=== PATIENT | female | born 1945 | race Caucasian/White ===

== ENCOUNTER → 2016-07-08 | Outpatient (CLI) | payer OTHER ==
[~2016-07-08] MED LIST: ASPCH81X PO; BIOT1CAP8 PO; CALC-393 PO; ESCI1TAB10 PO; METF1000 PO; METO-217 PO; MULT-671 PO; OMEP40CA PO; RSTOPS OP; SIMV20TA5 PO; TAMO20TA5 PO; TELM5TAB2 PO; TRAV0.00 OP; ZINC1CAP PO; potassium PO
--- NOTE | 2016-07-08 16:42 | MAMMOGRAPHY REPORT ---
UNILATERAL LEFT DIGITAL SCREENING MAMMOGRAM TOMOSYNTHESIS WITH CAD: 07/08/2016 CLINICAL HISTORY: Asymptomatic. Personal history of breast cancer. TECHNIQUE: Left breast tomosynthesis in addition to standard 2D mammography was performed. Current vinicius lamas was also evaluated with a Computer Aided Detection (CAD) system. COMPARISON: Comparison is made to exams dated: 07/05/2015 mammogram, 03/31/2014 mammogram, 05/17/2013 mammogram, and 04/27/2012 mammogram - [facility]. BREAST COMPOSITION: The tissue of the left breast is heterogeneously dense, which may obscure small masses. FINDINGS: The hub of a Mediport catheter is partially visualized in the far superior left breast on the MLO view. There is stable asymmetry in the inferior left breast. Scattered benign rim calcific ations and vascular calcifications in the left breast. No suspicious mass, architectural distortion or cluster of suspicious microcalcifications is seen. IMPRESSION: ACR BI-RADS CATEGORY 1: NEGATIVE There is no mammographic evidence of malignancy. A 1 year screening mammogram is recommended. The p atient will receive written notification of the results. Approximately 10% of breast cancers are not detected with mammography. A negative mammographic repor t should not delay biopsy if a clinically suggestive mass is present. Ya Joseph M.D. ay/:07/08/2016 15:28:11 Cryptoanalysis Teacher: Kary Mckenna, [facility] letter sent: Normal 1/2 BI-RADS Code: ACR BI-RADS Category 1: Negative
== END | disposition home or self-care (01) ==
LOC: C.MAMM 10:30
PROVIDERS: ATTEND Family Medicine
DX: Z12.31 Encounter for screening mammogram for malignant neoplasm of breast (principal); Z86.000 Personal history of in-situ neoplasm of breast

== ENCOUNTER → 2016-09-02 | Outpatient (CLI) | payer OTHER ==
--- NOTE | 2016-09-02 16:56 | DIAGNOSTIC IMAGING REPORT ---
LEFT HAND MIN 3 VIEWS CLINICAL HISTORY: MASS ON POSTERIOR LEFT HAND COMPARISON: None. DISCUSSION: Considerable degenerative change of the first carpometacarpal joint. Moderate degenerative change throughout all remaining osseous structures. No well-defined osseous mass. No significant bony exostosis. Mild generalized soft tissue edema presumably on a degenerative basis. IMPRESSION: Considerable degenerative changes throughout. Moderate generalized soft tissue edema. Electronically signed by: Isai Brooks M.D. 09/02/2016 4:54 PM Dictated Date/Time: 09/02/2016 4:53 PM
== END | disposition home or self-care (01) ==
LOC: C.RDSM 15:30
PROVIDERS: ATTEND Family Medicine
DX: R22.32 Localized swelling, mass and lump, left upper limb (principal); M19.042 Primary osteoarthritis, left hand; M79.9 Soft tissue disorder, unspecified

== ENCOUNTER → 2017-03-11 | Outpatient (CLI) | payer OTHER | END | disposition home or self-care (01) | LOC: C.RDSM 13:22 | PROVIDERS: ATTEND Physical Medicine & Rehabilitation Sports Medicine | DX: M70.72 Other bursitis of hip, left hip (principal); Z96.642 Presence of left artificial hip joint ==

== ENCOUNTER → 2017-07-09 | Outpatient (CLI) | payer OTHER ==
--- NOTE | 2017-07-09 15:23 | MAMMOGRAPHY REPORT ---
UNILATERAL LEFT DIGITAL SCREENING MAMMOGRAM TOMOSYNTHESIS WITH CAD: 07/09/2017 CLINICAL HISTORY: Asymptomatic. Personal history of breast cancer. TECHNIQUE: Breast tomosynthesis in addition to standard 2D mammography was performed. Current study was also evaluated with a Computer Aided Detection (CAD) system. COMPARISON: Comparison is made to exams dated: 07/08/2016 mammogram, 07/05/2015 mammogram, 03/31/2014 mammogram, 05/17/2013 mammogram, 04/27/2012 mammogram, and 04/30/2011 mammogram - [facility]. BREAST COMPOSITION: The tissue of the left breast is heterogeneously dense, which may obscure small masses. FINDINGS: There are no suspicious masses, calcifications, or areas of architectural distortion noted within the left breast. There has been no significant interval change compared to prior exams. Sca ttered benign-appearing calcifications are not significantly changed. Asymmetries in the left superi or and inferior breast are stable compared to multiple prior exams including the 2012 exam. IMPRESSION: ACR BI-RADS CATEGORY 2: BENIGN There is no mammographic evidence of malignancy in the left breast. A 1 year screening mammogram is r ecommended. The patient will receive written notification of the results. Approximately 10% of breast cancers are not detected with mammography. A negative mammographic report should not delay biopsy if a clinically suggestive mass is present. Adrianne So M.D. /:07/09/2017 10:41:43 Learning Operations Specialist: Ambreen MARES(Cynthia)(M), [facility] letter sent: Normal 1/2 BI-RADS Code: ACR BI-RADS Category 2: Benign
== END | disposition home or self-care (01) ==
LOC: C.MAMM 10:16
PROVIDERS: ATTEND Family Medicine
DX: Z12.31 Encounter for screening mammogram for malignant neoplasm of breast (principal); Z85.3 Personal history of malignant neoplasm of breast; Z08 Encounter for follow-up examination after completed treatment for malignant neoplasm

== ENCOUNTER 2017-09-08 23:45 | Observation (INO) | payer OTHER ==
[~2017-09-08] VITALS: Ht 167.6 cm; Wt 80.9 kg
[2017-09-08] MEDS ORDERED: ASPIRIN 324 MG CHEW PO STA (23:55)
[2017-09-09] MEDS: NITROGLYCERIN 0.4 MG SL PER TAB CHARGE SL PRN ×2 (00:14→00:37)
[2017-09-09 00:18] LABS: BASO % 0.2 %; BASO ABS # 0.02 K/uL (0-0.2); EOS % 2.6 %; EOS ABS # 0.21 K/uL (0-0.5); HEMATOCRIT 36.9 % (37-47); HEMOGLOBIN 12.4 g/dL (12.0-16.0); IG# 0.01 K/uL (0.00-0.02); LYMPH % 41.4 %; LYMPH ABS # 3.38 K/uL (1.2-3.4); MEAN CELL VOLUME 89.1 fL (80-100); MEAN CORPUSCULAR HGB CONC 33.6 g/dl (32-36); MEAN PLATELET VOLUME 9.6 fL (7.4-10.4); MONO % 8.2 %; MONO ABS # 0.67 K/uL (0.11-0.59); NEUT % 47.5 %; NEUT ABS # 3.87 K/uL (1.4-6.5); PLATELET COUNT 244 K/uL (130-400); RED CELL DISTRIBUTION WIDTH CV 13.5 % (11.5-14.5); RED CELL DISTRIBUTION WIDTH SD 44.1 fL (36.4-46.3); WHITE BLOOD COUNT 8.16 K/uL (4.8-10.8)
--- NOTE | 2017-09-09 00:22 | EMERGENCY ROOM VISIT NOTE ---
History Report prepared by Germania: Yanet Tim Under the Supervision of: Dr. Riky Vallejo M.D. First contact with patient: 23:49 Chief Complaint: CHEST PAIN Stated Complaint: CHEST PAIN History of Present Illness The patient is a 72 year old female who presents to the Emergency Room with complaints of sudden chest pain starting 5 hours ago. The patient states that it started while she was shopping the grocery store and she felt like she was going to pass out. She states that she did not sit down and kept pushing the cart. The patient reports that her heart rate was 100 and her blood pressure was 130/103 when she came home from the store. She describes the pain as a pressure. She complains of the pain radiating into her neck and her back. She notes that she has felt these symptoms in the past. She notes that she takes a baby aspirin each morning. The patient denies a history of a heart attack, taking medications for her chest pain, walking making the pain worse, eating something spicy, feeling like heart burn, swelling in legs, calf pain, and shortness of breath. The patient notes a history of hypertension, diabetes, and hyperlipidemia. Source of History: patient Onset: 5 hours ago Position: chest Quality: pressure Timing: other (sudden) Associated Symptoms: + neck pain, + back pain, No SOB Note: The patient denies swelling in her legs and calf pain. Review of Systems See HPI for pertinent positives & negatives. A total of 10 systems reviewed and were otherwise negative. Past Medical & Surgical Medical Problems: (1) Breast cancer (2) DM (diabetes mellitus) (3) GERD (gastroesophageal reflux disease) (4) HTN (hypertension) (5) Hyperlipidemia (6) Irregular heart beat Family History FH: CHF (congestive heart failure) Social History Smoking Status: Never Smoker Drug Use: none Marital Status: Housing Status: lives with family Current/Historical Medications Scheduled Aspirin (Aspirin Chewable), 81 MG PO DAILY Biotin (Biotin), 1 CAP PO BID Calcium Carbonate (Calcium), 600 MG PO BID Cyclosporine (Ophth) (Restasis), 1 DROP OP BID Escitalopram (Lexapro), 10 MG PO QAM Escitalopram Oxalate (Lexapro), 20 MG PO QPM Metformin Hcl (Glucophage), 1,000 MG PO BID Metoprolol Succinate (Toprol Xl), 50 MG PO HS Multiple Vitamins W/ Minerals (Multi Complete/Iron), 1 TAB PO DAILY Omeprazole (Prilosec), 40 MG PO DAILY Potassium (Potassium), 3 TABS PO DAILY Simvastatin (Zocor), 20 MG PO QPM Tamoxifen Citrate (Nolvadex), 20 MG PO QAM Telmisartan (Micardis), 20 MG PO DAILY Travoprost (Travatan Z), 1 DROPS OP HS Zinc Sulfate (Zinc Sulfate), 220 MG PO DAILY Allergies Coded Allergies: Acetaminophen (Verified Allergy, Unknown, `, 09/09/17) Adhesives (Verified Allergy, Unknown, ALLERGY TO ADHESIVE TAPE, 09/09/17) Iodinated Diagnostic Agents (Verified Allergy, Unknown, IVP DYE, 09/09/17) Latex1 -Allergic Contact Dermititis (Verified Allergy, Unknown, 09/09/17) Oxycodone (Verified Allergy, Unknown, `, 09/09/17) Sulfa Antibiotics (Verified Allergy, Unknown, "Sulfa drugs", 09/09/17) Atorvastatin (Verified Adverse Reaction, Mild, GI UPSET, 09/09/17) Physical Exam Vital Signs Date Time Temp Pulse Resp B/P (MAP) Pulse Ox O2 Delivery O2 Flow Rate FiO2 09/09/17 01:54 75 18 167/93 99 Room Air 09/09/17 01:24 75 18 181/103 97 Room Air 09/09/17 01:00 77 18 154/92 97 Room Air 09/09/17 00:45 81 18 150/88 99 Room Air 09/09/17 00:38 86 18 154/90 98 Room Air 09/09/17 00:30 86 146/100 98 Room Air 09/09/17 00:23 94 18 159/93 97 Room Air 09/09/17 00:15 99 18 186/86 97 Room Air 09/09/17 00:13 95 20 186/101 97 Room Air 09/09/17 00:00 98 Room Air 09/08/17 23:58 86 09/08/17 23:52 99 Room Air 09/08/17 23:52 36.7 89 22 206/123 100 Room Air Physical Exam GENERAL: Patient is mildly anxious appearing and in minimal distress. EYES: No scleral icterus, unremarkable pupils. ENT: Mucous membranes moist, no nasal congestion. NECK: No masses appreciated, no meningismus, trachea is midline. RESPIRATORY: No dyspnea. Clear to auscultation and equal bilaterally. No wheeze , no rhonchi. CARDIOVASCULAR: Regular rate and rhythm. No murmurs, rubs, gallops appreciated. GASTROINTESTINAL: Abdomen soft, nontender, no peritonitis. Bowel sounds positive. No masses appreciated. BACK: No midline tenderness, no CVA tenderness EXTREMITIES: Normal motion all extremities, no cyanosis, no edema. NEUROLOGIC: Alert and oriented, no acute motor or sensory deficits, no focal weakness, cranial nerves grossly intact. SKIN: No rash, no jaundice, no diaphoresis. Medical Decision & Procedures ER Provider Diagnostic Interpretation: X ray results are stated below per my interpretation: Chest: 1 view: No infiltrate, no effusion, normal cardiac border. Laboratory Results 09/08/17 23:55 Red Blood Count 4.14, Mean Corpuscular Volume 89.1, Mean Corpuscular Hemoglobin 30.0, Mean Corpuscular Hemoglobin Concent 33.6, Mean Platelet Volume 9.6, Neutrophils (%) (Auto) 47.5, Lymphocytes (%) (Auto) 41.4, Monocytes (%) (Auto) 8.2, Eosinophils (%) (Auto) 2.6, Basophils (%) (Auto) 0.2, Neutrophils # (Auto) 3.87, Lymphocytes # (Auto) 3.38, Monocytes # (Auto) 0.67, Eosinophils # (Auto) 0.21, Basophils # (Auto) 0.02 09/08/17 23:55 Test 09/08/17 23:55 White Blood Count 8.16 K/uL (4.8-10.8) Red Blood Count 4.14 M/uL (4.2-5.4) Hemoglobin 12.4 g/dL (12.0-16.0) Hematocrit 36.9 % (37-47) Mean Corpuscular Volume 89.1 fL (80-100) Mean Corpuscular Hemoglobin 30.0 pg (25-34) Mean Corpuscular Hemoglobin Concent 33.6 g/dl (32-36) Platelet Count 244 K/uL (130-400) Mean Platelet Volume 9.6 fL (7.4-10.4) Neutrophils (%) (Auto) 47.5 % Lymphocytes (%) (Auto) 41.4 % Monocytes (%) (Auto) 8.2 % Eosinophils (%) (Auto) 2.6 % Basophils (%) (Auto) 0.2 % Neutrophils # (Auto) 3.87 K/uL (1.4-6.5) Lymphocytes # (Auto) 3.38 K/uL (1.2-3.4) Monocytes # (Auto) 0.67 K/uL (0.11-0.59) Eosinophils # (Auto) 0.21 K/uL (0-0.5) Basophils # (Auto) 0.02 K/uL (0-0.2) RDW Standard Deviation 44.1 fL (36.4-46.3) RDW Coefficient of Variation 13.5 % (11.5-14.5) Immature Granulocyte % (Auto) 0.1 % Immature Granulocyte # (Auto) 0.01 K/uL (0.00-0.02) Anion Gap 8.0 mmol/L (3-11) Est Creatinine Clear Calc Drug Dose 62.8 ml/min Estimated GFR () 77.1 Estimated GFR (Non- 66.6 BUN/Creatinine Ratio 18.9 (10-20) Calcium Level 8.9 mg/dl (8.5-10.1) Troponin I 0.017 ng/ml (0-0.045) Laboratory results as reviewed by me. Medications Administered Medications (Trade) Dose Ordered Sig/Ney Route Start Time Stop Time Status Last Admin Dose Admin Nitroglycerin (Nitrostat Tab) 0.4 mg Q5M PRN SL 09/09/17 00:00 09/09/17 03:12 DC 09/09/17 00:37 0.4 MG Aspirin (Aspirin Chew) 324 mg NOW STAT PO 09/08/17 23:55 09/08/17 23:57 DC 09/09/17 00:12 324 MG ECG Per My Interpretation Indication: chest pain Rate (beats per minute): 96 Rhythm: normal sinus Findings: no acute ischemic change, no ectopy, other (QT-c 429) ED Course 2350: The patient was evaluated in room A10. A complete history and physical exam was performed. 2355: Ordered Aspiring 324 mg PO. 0000: Ordered Nitroglycerin 0.4 mg PRN SL Chest pain. 2: I reevaluated the patient and she has complete resolution of her chest pain after her second Nitroglycerin. She agrees to come into the hospital. Her blood pressure is in the 150s. 0103: Discussed the patient's case with Dr. Lina AMARAL Hospitalist. The patient will be evaluated for further treatment and disposition. Medical Decision Differential: Cardiac Ischemia (STEMI, NSTEMI, Unstable Angina, etc), Aortic Dissection, Arrhythmia, Pulmonary Embolism, Pneumonia, Pneumothorax, MSK, Infectious, Pericarditis/Myocarditis, Esophageal Rupture, Gastrointestinal, amongst other pathologies entertained. 72 yr old female with history HTN arrives for evaluation of substernal chest pressure radiating to anterior neck and back. Quite hypertensive on arrival. BP and CP improved with 2 SLNTG. EKG OK. Trop wnl. WBC OK. CXR unremarkable. She has no current evidence ACS, PE, Dissection though will need to come in for cardiac rule out. Patient agreeable to this. Stable and without symptoms at time of hospitalist evaluation. Medication Reconcilliation Current Medication List: was personally reviewed by me Blood Pressure Screening Patient's blood pressure: Elevated blood pressure Will be further monitored by the hospitalist. Consults Time Called: 58 Consulting Physician: Dr. Lina AMARAL Hospitalist Returned Call: 010 Discussed the patient's case with Dr. Lina AMARAL Hospitalist. The patient will be evaluated for further treatment and disposition. Impression Primary Impression: Substernal chest pain Additional Impression: HTN (hypertension) Scribe Attestation The scribe's documentation has been prepared under my direction and personally reviewed by me in its entirety. I confirm that the note above accurately reflects all work, treatment, procedures, and medical decision making performed by me. Departure Information Referrals Yahaira Rodriguez D.O. (PCP) Patient Instructions [facility] Problem Qualifiers
[2017-09-09 00:35] LABS: CALCIUM 8.9 mg/dl (8.5-10.1); CREATININE 0.87 mg/dl (0.60-1.20); POTASSIUM 3.8 mmol/L (3.5-5.1)
[2017-09-09] MEDS ORDERED: CYCL0.052 OP (00:43)
[2017-09-09] MEDS ORDERED: ESCI10TA17 PO (00:43)
[2017-09-09] MEDS ORDERED: OMEP40CA41 PO (00:44)
[2017-09-09] MEDS ORDERED: POTA75TA PO (00:46)
[2017-09-09] MEDS ORDERED: POTA10CA28 PO (00:46)
[2017-09-09] MEDS ORDERED: ALUMINUM/MAGNESIUM/SIMETH (MAALOX MAX) 30 ML UDC PO PRN (02:15)
[2017-09-09] MEDS ORDERED: ZOLPIDEM TARTRATE 5 MG TAB PO PRN (02:15)
[2017-09-09] MEDS ORDERED: POLYETHYLENE (MIRALAX) 17 GM PACK PO PRN (02:15)
[2017-09-09] MEDS ORDERED: NITROGLYCERIN 0.4 MG SL PER TAB CHARGE SL PRN (02:15)
[2017-09-09] MEDS ORDERED: MAGNESIUM HYDROXIDE SUSP 30 ML UDC PO PRN (02:15)
[2017-09-09] MEDS ORDERED: ONDANSETRON INJ 2 MG/ML 2 ML VIAL IV PRN (02:15)
--- NOTE | 2017-09-09 02:34 | History and Physical ---
History & Physical Date & Time of Service: Sep 09, 2017 at 02:08 Chief Complaint: Chest Pain Primary Care Physician: Yahaira Rodriguez D.O. History of Present Illness Source: patient, family () Pt is a 72F with a PMHx of DM2, HTN, HLD, Breast CA that p/w sudden substernal squeezing chest pain that occurred suddenly when she was in [employer] . She was not lifting or doing anything strenous when it happened. The squeezing was constant and only when away in the ER when she got Nitro. She also felt a sharp stabbing pain in her back that occurred at the same time. The patient has had intermittent episodes such as these for the past 6 months or so, on average 1-2 per week. She felt that this episode was more painful than her previous episodes and that alarmed her. Her recommend she come to the ER. Pt rates her pain as 7/10. Pt has a 3 pack year smoking history in her 20s, doesn't chew, has never had pancreatitis in the past or problems with her gallbladder. ROS: +ve for SOB on exertion in the past few months. No hand or feet swelling. No calf pain. No coughing. PMHx: Pt remembers being Cath'd 30+ year ago (before they did caths [facility] [employer]) , had had echos, follows with Dr. Miguel, no echocardiograms or stress tests within the past 3 years. Past Medical/Surgical History Medical Problems: (1) Breast cancer (2) Chest pain (3) Chest pain (4) DM (diabetes mellitus) (5) GERD (gastroesophageal reflux disease) (6) HTN (hypertension) (7) Hyperlipidemia (8) Irregular heart beat (9) Precordial chest pain Family History FH: CHF (congestive heart failure) Social History Smoking Status: Never Smoker Smokeless Tobacco Use: No Alcohol Use: none Drug Use: none Marital Status: Housing status: lives with family Occupational Status: retired Immunizations History of Influenza Vaccine: Yes Influenza Vaccine Date: Apr 21, 2006 History of Tetanus Vaccine?: Yes Tetanus Immunization Date: Nov 19, 2005 History of Pneumococcal: No History of Hepatitis B Vaccine: No Allergies Coded Allergies: Acetaminophen (Verified Allergy, Unknown, `, 09/09/17) Adhesives (Verified Allergy, Unknown, ALLERGY TO ADHESIVE TAPE, 09/09/17) Iodinated Diagnostic Agents (Verified Allergy, Unknown, IVP DYE, 09/09/17) Latex1 -Allergic Contact Dermititis (Verified Allergy, Unknown, 09/09/17) Oxycodone (Verified Allergy, Unknown, `, 09/09/17) Sulfa Antibiotics (Verified Allergy, Unknown, "Sulfa drugs", 09/09/17) Atorvastatin (Verified Adverse Reaction, Mild, GI UPSET, 09/09/17) Home Medications Scheduled Aspirin (Aspirin Chewable), 81 MG PO DAILY Biotin (Biotin), 1 CAP PO BID Calcium Carbonate (Calcium), 600 MG PO BID Cyclosporine (Ophth) (Restasis), 1 DROP OP BID Escitalopram (Lexapro), 10 MG PO QAM Escitalopram Oxalate (Lexapro), 20 MG PO QPM Metformin Hcl (Glucophage), 1,000 MG PO BID Metoprolol Succinate (Toprol Xl), 50 MG PO HS Multiple Vitamins W/ Minerals (Multi Complete/Iron), 1 TAB PO DAILY Omeprazole (Prilosec), 40 MG PO DAILY Potassium (Potassium), 3 TABS PO DAILY Simvastatin (Zocor), 20 MG PO QPM Tamoxifen Citrate (Nolvadex), 20 MG PO QAM Telmisartan (Micardis), 20 MG PO DAILY Travoprost (Travatan Z), 1 DROPS OP HS Zinc Sulfate (Zinc Sulfate), 220 MG PO DAILY Review of Systems Constitutional: No fever, No chills ENT: No hearing loss Respiratory: + shortness of breath, + dyspnea on exertion, No cough, No sputum , No wheezing, No dyspnea at rest Cardiovascular: + chest pain, No orthopnea, No edema, No claudication, No palpitations Abdomen: No pain, No nausea, No vomiting, No diarrhea, No constipation Musculoskeletal: No joint pain Genitourinary - Female: No dysuria Integumentary: No rash Physical Exam Vital Signs Date Time Temp Pulse Resp B/P (MAP) Pulse Ox O2 Delivery O2 Flow Rate FiO2 09/09/17 01:54 75 18 167/93 99 Room Air 09/09/17 01:24 75 18 181/103 97 Room Air 09/09/17 01:00 77 18 154/92 97 Room Air 09/09/17 00:45 81 18 150/88 99 Room Air 09/09/17 00:38 86 18 154/90 98 Room Air 09/09/17 00:30 86 146/100 98 Room Air 09/09/17 00:23 94 18 159/93 97 Room Air 09/09/17 00:15 99 18 186/86 97 Room Air 09/09/17 00:13 95 20 186/101 97 Room Air 09/09/17 00:00 98 Room Air 09/08/17 23:58 86 09/08/17 23:52 99 Room Air 09/08/17 23:52 36.7 89 22 206/123 100 Room Air General Appearance: WD/WN, no apparent distress Head: normocephalic, atraumatic Eyes: normal inspection, PERRL ENT: normal ENT inspection Neck: supple Respiratory/Chest: chest non-tender, lungs clear, normal breath sounds, no respiratory distress, no accessory muscle use Cardiovascular: regular rate, rhythm, no edema, no gallop, no JVD, no murmur, normal peripheral pulses Abdomen/GI: normal bowel sounds, non tender, soft, no organomegaly, no pulsatile mass Back: normal inspection, no CVA tenderness, no muscle spasm Extremities/Musculoskelatal: normal inspection, no calf tenderness, no pedal edema Neurologic/Psych: application security developer II-XII nml as tested, no motor/sensory deficits, alert, normal mood/affect, normal reflexes, oriented x 3 Skin: normal color, warm/dry, no rash Diagnostics Laboratory Results Results Past 24 Hours Test 09/08/17 23:55 Range/Units White Blood Count 8.16 4.8-10.8 K/uL Red Blood Count 4.14 4.2-5.4 M/uL Hemoglobin 12.4 12.0-16.0 g/dL Hematocrit 36.9 37-47 % Mean Corpuscular Volume 89.1 80-100 fL Mean Corpuscular Hemoglobin 30.0 25-34 pg Mean Corpuscular Hemoglobin Concent 33.6 32-36 g/dl Platelet Count 244 130-400 K/uL Mean Platelet Volume 9.6 7.4-10.4 fL Neutrophils (%) (Auto) 47.5 % Lymphocytes (%) (Auto) 41.4 % Monocytes (%) (Auto) 8.2 % Eosinophils (%) (Auto) 2.6 % Basophils (%) (Auto) 0.2 % Neutrophils # (Auto) 3.87 1.4-6.5 K/uL Lymphocytes # (Auto) 3.38 1.2-3.4 K/uL Monocytes # (Auto) 0.67 0.11-0.59 K/uL Eosinophils # (Auto) 0.21 0-0.5 K/uL Basophils # (Auto) 0.02 0-0.2 K/uL RDW Standard Deviation 44.1 36.4-46.3 fL RDW Coefficient of Variation 13.5 11.5-14.5 % Immature Granulocyte % (Auto) 0.1 % Immature Granulocyte # (Auto) 0.01 0.00-0.02 K/uL Sodium Level 139 136-145 mmol/L Potassium Level 3.8 3.5-5.1 mmol/L Chloride Level 107 98-107 mmol/L Carbon Dioxide Level 24 21-32 mmol/L Anion Gap 8.0 3-11 mmol/L Blood Urea Nitrogen 16 7-18 mg/dl Creatinine 0.87 0.60-1.20 mg/dl Est Creatinine Clear Calc Drug Dose 62.8 ml/min Estimated GFR () 77.1 Estimated GFR (Non- 66.6 BUN/Creatinine Ratio 18.9 10-20 Random Glucose 147 70-99 mg/dl Calcium Level 8.9 8.5-10.1 mg/dl Troponin I 0.017 0-0.045 ng/ml EKG Normal sinus rhythm Normal ECG When compared with ECG of 19-JUN-2015 09:26, No significant change was found Impression Assessment and Plan 72F with a PMHx of DM2, HTN, HLD, depression, Breast CA that p/w sudden substernal squeezing chest pain that occurred suddenly when she was in [facility]. EKG WNL, trop negative. Will admit for CP rule out. Echo ordered. Obs to tele. Chest Pain of Unknown Origin Atypical, does not come with exertion. EKG showed no changes. Will trend Trops. Daily EKGs. Echocardiogram. (consider exercise echo if pt is up for it). ASA in the AM. CMP, Lipase, Mag Pending. Pt is on K+ at home, watch. Obs on tele. No cards consult - can consult as needed. Consider Liver US if suspect biliary pathology. DM2 Will get HBA1C. continue Metformin 1g BID. HTN / HLD Will get fasting lipid panel. c/w Metoprolol. c/w Telmisartan c/w Zocor. h/o Breast CA c/w Tamoxifen 20 MG PO QAM Depression: Continue home regimen, Lexapro 10mg QAM and 20mg QPM. Glaucoma: continue Micardis & Travatan drops Diet: NPO except meds and sips with IVF of NSS at 100mls/hr. GERD: PPI Dispo: Obs to tele. DVT Proph: Hep SQ BID, SCDs Full Code Attending addendum: I have physically seen this patient, have supervised the medical residents activities, and agree with the H&P unless as otherwise noted. Assessment and Plan: Precordial chest pain/hypertension-- The patient will be admitted to telemetry for serial cardiac enzymes, serial EKG's, cardiac rhythm monitoring and a 2-D echocardiogram with Dopplers. Continue metoprolol and telmisartan. Diabetes mellitus-- Check hemoglobin A1c. Placed on Accu-Cheks before meals and at bedtime with NovoLog coverage per scale Hold metformin during acute stage of workup. Remainder of medications as above. Advanced Directives Existing Advance Directive: No Existing Living Will: No Existing Power of Water Inspector: No Resuscitation Status VTE Prophylaxis Will order VTE Prophylaxis: Yes Social Service Consult None Apply Resident Involvement: Resident Care Provided Care Provided: Adult Hospital Medicine
[2017-09-09 03:15] VITALS: BP 185/85; PULSE 80; TEMP 36.6; O2SAT 98; Ht 167.6 cm; Wt 80.9 kg
[2017-09-09] MEDS ORDERED: SODIUM CHLORIDE 0.9% 1000ML 1,000 ML IV SCH (03:30)
[2017-09-09] MEDS ORDERED: IV FLUIDS COMPLETED PRN (04:15)
[2017-09-09 06:54] LABS: CREATININE 0.84 mg/dl (0.60-1.20)
[2017-09-09 06:55] LABS: CALCIUM 8.4 mg/dl (8.5-10.1)
[2017-09-09 06:57] LABS: TOTAL PROTEIN 6.2 gm/dl (6.4-8.2)
--- NOTE | 2017-09-09 07:21 | DIAGNOSTIC IMAGING REPORT ---
CHEST ONE VIEW PORTABLE CLINICAL HISTORY: Atypical chest pain COMPARISON STUDY: 06/18/2015 FINDINGS: The cardiac images so contours remain stable. There is a left-sided A-Port catheter unchanged in position. There is no focal pulmonary consolidation. There is no failure. There are no pleural effusions.[ IMPRESSION: No active disease in the chest. Electronically signed by: Rashi Aleman M.D. 09/09/2017 7:20 AM Dictated Date/Time: 09/09/2017 7:20 AM
[2017-09-09 07:22] VITALS: BP 160/75; PULSE 79; TEMP 36.8; O2SAT 97
[2017-09-09] MEDS ORDERED: METFORMIN HCL 500 MG TAB PO SCH (08:00)
[2017-09-09] MEDS ORDERED: TAMOXIFEN CITRATE 10 MG TAB PO SCH (09:00)
[2017-09-09] MEDS ORDERED: HEPARIN SOD 5000 UNIT/0.5 ML CARP SQ SCH (09:00)
[2017-09-09] MEDS ORDERED: ESCITALOPRAM OXALATE 10 MG TAB PO SCH (09:00)
[2017-09-09] MEDS ORDERED: CEROVITE ADV FORMULA TAB PO SCH (09:00)
[2017-09-09] MEDS ORDERED: TELMISARTAN 20 MG TAB PO SCH (09:00)
[2017-09-09] MEDS ORDERED: ASPIRIN 81 MG CHEW PO SCH (09:00)
--- NOTE | 2017-09-09 09:27 | Family Medicine Progress Note ---
Progress Note Date of Service Sep 09, 2017. Medications Current Inpatient Medications Medications (Trade) Dose Ordered Sig/Ney Route Start Time Stop Time Status Last Admin Dose Admin Heparin Sodium (Porcine) (Heparin Sq 5000 Unit/0.5ml) 5,000 unit Q12 SQ 09/09/17 09:00 10/09/17 08:59 Sodium Chloride 1,000 ml @ 100 mls/hr Q10H IV 09/09/17 03:30 10/09/17 03:29 09/09/17 03:38 100 MLS/HR Al Hydrox/Mg Hydrox/Simethicone (Maalox Max Susp) 15 ml Q4H PRN PO 09/09/17 02:15 10/09/17 02:14 Magnesium Hydroxide (Milk Of Magnesia Susp) 30 ml Q12H PRN PO 09/09/17 02:15 10/09/17 02:14 Zolpidem Tartrate (Ambien Tab) 5 mg HSZ PRN PO 09/09/17 02:15 10/09/17 02:14 Ondansetron HCl (Zofran Inj) 4 mg Q6H PRN IV 09/09/17 02:15 10/09/17 02:14 Nitroglycerin (Nitrostat Tab) 0.4 mg UD PRN SL 09/09/17 02:15 10/09/17 02:14 Polyethylene (Miralax Powder Packet) 17 gm DAILY PRN PO 09/09/17 02:15 10/09/17 02:14 Aspirin (Aspirin Chew) 81 mg DAILY PO 09/09/17 09:00 10/09/17 08:59 09/09/17 08:44 81 MG Escitalopram Oxalate (Lexapro Tab) 10 mg QAM PO 09/09/17 09:00 10/09/17 08:59 09/09/17 08:44 10 MG Escitalopram Oxalate (Lexapro Tab) 20 mg QPM PO 09/09/17 21:00 10/09/17 20:59 Metformin HCl (Glucophage Tab) 1,000 mg BIDM PO 09/09/17 08:00 10/09/17 07:59 09/09/17 08:42 1,000 MG Metoprolol Succinate (Toprol Xl Tab) 50 mg HS PO 09/09/17 21:00 10/09/17 20:59 Multivitamins/ Minerals (Multivitamin W/ Minerals Tab) 1 tab DAILY PO 09/09/17 09:00 10/09/17 08:59 09/09/17 08:44 1 TAB Simvastatin (Zocor Tab) 20 mg QPM PO 09/09/17 21:00 10/09/17 20:59 Tamoxifen Citrate (Nolvadex Tab) 20 mg QAM PO 09/09/17 09:00 10/09/17 08:59 09/09/17 08:44 20 MG Telmisartan (Micardis Tab) 20 mg DAILY PO 09/09/17 09:00 10/09/17 08:59 09/09/17 08:42 20 MG Travoprost (Travatan Z) 1 drops HS OP 09/09/17 21:00 10/09/17 20:59 Miscellaneous (Iv Fluids Completed) 1 ea PRN PRN N/A 09/09/17 04:15 09/09/18 04:14 Objective Vital Signs Date Time Temp Pulse Resp B/P (MAP) Pulse Ox O2 Delivery O2 Flow Rate FiO2 09/09/17 07:22 36.8 79 16 160/75 (103) 97 09/09/17 03:15 36.6 80 16 185/85 98 Room Air 09/09/17 03:07 79 18 155/87 96 09/09/17 01:54 75 18 167/93 99 Room Air 09/09/17 01:24 75 18 181/103 97 Room Air 09/09/17 01:00 77 18 154/92 97 Room Air 09/09/17 00:45 81 18 150/88 99 Room Air 09/09/17 00:38 86 18 154/90 98 Room Air 09/09/17 00:30 86 146/100 98 Room Air 09/09/17 00:23 94 18 159/93 97 Room Air 09/09/17 00:15 99 18 186/86 97 Room Air 09/09/17 00:13 95 20 186/101 97 Room Air 09/09/17 00:00 98 Room Air 09/08/17 23:58 86 09/08/17 23:52 99 Room Air 09/08/17 23:52 36.7 89 22 206/123 100 Room Air Laboratory Results Results Past 24 Hours Test 09/08/17 23:55 4/3/18 06:03 Range/Units White Blood Count 8.16 4.8-10.8 K/uL Red Blood Count 4.14 4.2-5.4 M/uL Hemoglobin 12.4 12.0-16.0 g/dL Hematocrit 36.9 37-47 % Mean Corpuscular Volume 89.1 80-100 fL Mean Corpuscular Hemoglobin 30.0 25-34 pg Mean Corpuscular Hemoglobin Concent 33.6 32-36 g/dl Platelet Count 244 130-400 K/uL Mean Platelet Volume 9.6 7.4-10.4 fL Neutrophils (%) (Auto) 47.5 % Lymphocytes (%) (Auto) 41.4 % Monocytes (%) (Auto) 8.2 % Eosinophils (%) (Auto) 2.6 % Basophils (%) (Auto) 0.2 % Neutrophils # (Auto) 3.87 1.4-6.5 K/uL Lymphocytes # (Auto) 3.38 1.2-3.4 K/uL Monocytes # (Auto) 0.67 0.11-0.59 K/uL Eosinophils # (Auto) 0.21 0-0.5 K/uL Basophils # (Auto) 0.02 0-0.2 K/uL RDW Standard Deviation 44.1 36.4-46.3 fL RDW Coefficient of Variation 13.5 11.5-14.5 % Immature Granulocyte % (Auto) 0.1 % Immature Granulocyte # (Auto) 0.01 0.00-0.02 K/uL Sodium Level 139 140 136-145 mmol/L Potassium Level 3.8 4.0 3.5-5.1 mmol/L Chloride Level 107 108 98-107 mmol/L Carbon Dioxide Level 24 23 21-32 mmol/L Anion Gap 8.0 9.0 3-11 mmol/L Blood Urea Nitrogen 16 17 7-18 mg/dl Creatinine 0.87 0.84 0.60-1.20 mg/dl Est Creatinine Clear Calc Drug Dose 62.8 64.9 ml/min Estimated GFR () 77.1 80.5 Estimated GFR (Non- 66.6 69.4 BUN/Creatinine Ratio 18.9 20.3 10-20 Random Glucose 147 157 70-99 mg/dl Calcium Level 8.9 8.4 8.5-10.1 mg/dl Troponin I 0.017 0.020 0-0.045 ng/ml Prothrombin Time 10.6 9.0-12.0 SECONDS Prothromb Time International Ratio 1.0 0.9-1.1 Estimated Average Glucose 183 mg/dl Hemoglobin A1c 8.0 4.5-5.6 % Magnesium Level 1.7 1.8-2.4 mg/dl Total Bilirubin 0.3 0.2-1 mg/dl Aspartate Amino Transf (AST/SGOT) 15 15-37 U/L Alanine Aminotransferase (ALT/SGPT) 20 12-78 U/L Alkaline Phosphatase 38 45-117 U/L Total Protein 6.2 6.4-8.2 gm/dl Albumin 3.0 3.4-5.0 gm/dl Globulin 3.2 2.5-4.0 gm/dl Albumin/Globulin Ratio 0.9 0.9-2 Triglycerides Level 223 0-150 mg/dl Cholesterol Level 135 0-200 mg/dl HDL Cholesterol 35 mg/dl LDL Cholesterol, Calculated 55 mg/dl VLDL Cholesterol, Calculated 45 mg/dl Cholesterol/HDL Ratio 3.9 Lipase 130 73-393 U/L Hepatitis C Antibody Screen NEG NEG Assessment and Plan Resident Physician Supervision Note: I interviewed and examined the patient. Discussed with Dr. Isidro and agree with findings and plan as documented in the note. Any exceptions or clarifications are listed here: None Documented By: Caden Mir feeling ok stress negative wants to go home discussed ambulatory BP monitoring vitals noted nad breathing unlabored no pallor or icterus chest pain - noncardiac - stable for home. suspect GI source elevated BP - asymptomatic - has a good cuff at home - f/u multiple readings over the next week then f/u w PCP - meds may need adjusted but certainly no urgency, and BP may be up just from stress of event stable for home
[2017-09-09 11:15] VITALS: BP 171/90; PULSE 99; O2SAT 99
--- NOTE | 2017-09-09 11:45 | Discharge Instructions ---
Discharge Instructions Date of Service Sep 09, 2017. Admission Reason for Admission: Chest Pain Discharge Discharge Diagnosis / Problem: Chest pain Discharge Goals Goal(s): Decrease discomfort, Improve function, Increase independence, Improve disease control, Learn about illness, Diagnostic testing Activity Recommendations Activity Limitations: as noted below Lifting Limitations: gradually increase as tolerated Exercise/Sports Limitations: gradually increase as tolerated May Resume Sexual Activity: when tolerated Shower/Bathe: no limitations Driving or Machine Use: no limitations . Instructions / Follow-Up Instructions / Follow-Up Dear Mrs. Locke, Jaswinder were admitted due to chest pain. You had a stress test that was normal. Your cardiac enzymes were normal. We recommend increasing the dose of your cholesterol medicine. Please discuss with your family doctor. If you have any further chest pain, shortness of breath or other concerns, please call your pcp or come back to the ER. Thank you Current Hospital Diet Patient's current hospital diet: AHA Diet (Heart Healthy), Diabetes Type 2 Diet Discharge Diet Recommended Diet: Diabetes Type 2 Diet Pending Studies Studies pending at discharge: no Laboratory Results Hemoglobin A1c Test 09/09/17 06:03 Range/Units Estimated Average Glucose 183 mg/dl Hemoglobin A1c 8.0 H 4.5-5.6 % Lipid Panel Test 09/09/17 06:03 Range/Units Triglycerides Level 223 H 0-150 mg/dl Cholesterol Level 135 0-200 mg/dl HDL Cholesterol 35 mg/dl Cholesterol/HDL Ratio 3.9 LDL Cholesterol, Calculated 55 mg/dl Medical Emergencies . Who to Call and When: Medical Emergencies: If at any time you feel your situation is an emergency, please call 911 immediately. . Non-Emergent Contact Non-Emergency issues call your: Primary Care Provider Call Non-Emergent contact if: your pain is not controlled, your pain is worsening, your pain is unusual for you, your pain is concerning you . . "Provider Documentation" section prepared by Nik Isidro. .
[2017-09-09 11:52] VITALS: BP 171/90; PULSE 99; TEMP 36.8; O2SAT 99
--- NOTE | 2017-09-09 13:41 | EXERCISE STRESS ECHO ---
*NOTICE TO RECEIVING DEMOCRAT AGENCY This information is strictly Confidential and protected under [place] law. [place] law prohibits you from making any further disclosure of this information unless further disclosure is expressly permitted by the written consent of the person to whom it pertains or is authorized by law. A general authorization for the release of medical or other information is not sufficient for this purpose. Hospital accepts no responsibility if the information is made available to any other person, INCLUDING THE PATIENT. Interpretation Summary * Name: RAFI BUTTS Study Date: 09/09/2017 09:31 AM BP: 156/72 mmHg * Patient Location: [facility]\S\N284\S\2 HR: 83 * : 1945 (M/d/yyyy) Gender: Female Height: 66 in * Age: 72 yrs Ethnicity: CA Weight: 178 lb * Ordering Physician: Caden Mir * Referring Physician: Self, Referred * Performed By: Christy Malin RDCS * * Reason For Study: Chest pain * BSA: 1.9 m2 * -- Conclusions -- * 1. Normal stress echocardiogram at 6.2 METS and a peak heart rate of greater than 100% predicted maximum. * 2. No exercise-induced chest pain. * 3. No EKG changes. * 4. Baseline echocardiogram notes normal left ventricular systolic function, mild LVH, and evidence of diastolic dysfunction. Procedure Details * ECHOEX, CPT #[id number] * ECHO DOPPLER, CPT #[id number] * ECHO COLOR FLOW, CPT #[id number] Left Ventricle * The left ventricle is normal in size. * There is mild concentric left ventricular hypertrophy. * Ejection Fraction = 55-60%. * Left ventricular systolic function is normal. * Resting wall motion: Normal. Stress wall motion: Appropriate increase in Left ventricular systolic function and decrease in cavity size. No stress induced segmental wall motion abnormalities. Right Ventricle * The right ventricle is grossly normal size. * The right ventricular systolic function is normal as assessed by tricuspid annular plane systolic excursion (TAPSE) (normal >1.5 cm). Atria * The left atrium is mildly dilated. * Right atrial size is normal. * There is no evidence of atrial septal defect, but resolution does not allow assessment for a patent foramen ovale. Mitral Valve * The mitral valve is grossly normal. * There is no mitral valve stenosis. * There is mild mitral regurgitation. Tricuspid Valve * The tricuspid valve is not well visualized, but is grossly normal. * There is mild tricuspid regurgitation. Aortic Valve * The aortic valve is trileaflet. * The aortic valve opens well. * Aortic valve sclerosis mild, without significant aortic valvular stenosis. * No aortic regurgitation is present. Pulmonic Valve * The pulmonary valve is inadequately visualized, but the Doppler data is adequate for interpretation. Great Vessels * The aortic root is normal size. * The pulmonary is not well visualized. Pericardium * There is no pericardial effusion. Stress Parameters * The baseline ECG displays normal sinus rhythm. * Stress ECG: No ST changes. No arrhythmias. * The stress portion of this study was personally supervised by the undersigned interpreting physician. * Rest heart rate was '83' BPM. * Rest blood pressure was '156/72' * Maximum heart rate achieved was 153 bpm. * Maximum heart rate was 103 % of maximum age-predicted heart rate. * Maximum blood pressure was '156/72' * Total exercise time was '4:21' * Maximum exercise MET level achieved was '6.20' METS * Maximum treadmill speed was '2.50' miles per hour. * Maximum treadmill elevation was '12.00'% grade. * Exercise was terminated due to 'achieving target heart rate' Left Ventricular Diastolic Function * Grade I diastolic dysfunction, (abnormal relaxation pattern). MMode 2D Measurements and Calculations IVSd 0.99 cm LVIDd 3.7 cm LVIDs 2.6 cm LVPWd 0.84 cm IVS/LVPW 1.2 FS 30.9 % EDV(Teich) 60.0 ml ESV(Teich) 24.4 ml EF(Teich) 59.3 % EDV(cubed) 52.7 ml ESV(cubed) 17.4 ml EF(cubed) 67.0 % LV mass(C)d 101.9 grams LV mass(C)dI 53.5 grams/m\S\2 SV(Teich) 35.6 ml SI(Teich) 18.7 ml/m\S\2 SV(cubed) 35.3 ml SI(cubed) 18.5 ml/m\S\2 Ao root diam 3.0 cm Ao root area 7.0 cm\S\2 ACS 1.6 cm LA dimension 3.0 cm asc Aorta Diam 3.1 cm LA/Ao 1.0 LVOT diam 2.0 cm LVOT area 3.0 cm\S\2 LVAd ap4 24.9 cm\S\2 LVLd ap4 7.9 cm EDV(MOD-sp4) 64.9 ml EDV(sp4-el) 66.6 ml LVAs ap4 14.3 cm\S\2 LVLs ap4 6.3 cm ESV(MOD-sp4) 28.4 ml ESV(sp4-el) 27.3 ml EF(MOD-sp4) 56.3 % EF(sp4-el) 59.0 % LVAd ap2 22.3 cm\S\2 LVLd ap2 7.3 cm EDV(MOD-sp2) 55.1 ml EDV(sp2-el) 57.8 ml LVAs ap2 12.5 cm\S\2 LVLs ap2 5.7 cm ESV(MOD-sp2) 22.2 ml ESV(sp2-el) 23.2 ml EF(MOD-sp2) 59.7 % EF(sp2-el) 59.8 % LVLd %diff -7.99 % EDV(MOD-bp) 62.1 ml LVLs %diff -11.05 % ESV(MOD-bp) 26.2 ml EF(MOD-bp) 57.8 % SV(MOD-sp4) 36.6 ml SI(MOD-sp4) 19.2 ml/m\S\2 SV(MOD-sp2) 32.9 ml SI(MOD-sp2) 17.3 ml/m\S\2 SV(MOD-bp) 35.9 ml SI(MOD-bp) 18.9 ml/m\S\2 SV(sp4-el) 39.3 ml SI(sp4-el) 20.6 ml/m\S\2 SV(sp2-el) 34.6 ml SI(sp2-el) 18.2 ml/m\S\2 Doppler Measurements and Calculations MV E max tash 89.2 cm/sec MV A max tash 112.0 cm/sec MV E/A 0.80 MV dec time 0.24 sec Ao V2 max 132.5 cm/sec Ao max PG 7.0 mmHg Ao max PG (full) 3.1 mmHg CLARENCE(V,A) 2.2 cm\S\2 CLARENCE(V,D) 2.2 cm\S\2 LV V1 max PG 4.0 mmHg LV V1 max 99.4 cm/sec PA V2 max 97.7 cm/sec PA max PG 3.8 mmHg PA acc slope 771.4 cm/sec\S\2 PA acc time 0.09 sec TR max tash 194.1 cm/sec PA pr(Accel) 39.4 mmHg
[2017-09-09] MEDS ORDERED: METOPROLOL SUCC 50MG EXT REL TAB PO SCH (21:00)
[2017-09-09] MEDS ORDERED: ESCITALOPRAM OXALATE 20 MG TAB PO SCH (21:00)
[2017-09-09] MEDS ORDERED: SIMVASTATIN 20 MG TAB PO SCH (21:00)
[2017-09-09] MEDS ORDERED: TRAVOPROST Z 0.004% OPH SOLN 2.5 ML BTL OP SCH (21:00)
--- NOTE | 2017-09-10 07:16 | Discharge Summary ---
Discharge Summary Date of Service Sep 09, 2017. Discharge Summary Admission Date: Sep 09, 2017 at 02:21 Discharge Date: Sep 09, 2017 Discharge Disposition: Home Principal Diagnosis: Chest pain Problems/Secondary Diagnoses: (1) HTN (hypertension) Status: Chronic Immunizations: Have You Had Influenza Vaccine: Yes Influenza Vaccine Date: Apr 21, 2006 History of Tetanus Vaccine?: Yes Tetanus Immunization Date: Nov 19, 2005 History of Pneumococcal: No History of Hepatitis B Vaccine: No Procedures: CHEST ONE VIEW PORTABLE CLINICAL HISTORY: Atypical chest pain COMPARISON STUDY: 06/18/2015 FINDINGS: The cardiac images so contours remain stable. There is a left-sided A-Port catheter unchanged in position. There is no focal pulmonary consolidation. There is no failure. There are no pleural effusions.[ IMPRESSION: No active disease in the chest. Medication Reconciliation Continued Medications: Aspirin (Aspirin Chewable) 81 Mg Chew 81 MG PO DAILY, TAB Biotin (Biotin) 1 Mg Cap 1 CAP PO BID Calcium Carbonate (Calcium) 600 Mg Tab 600 MG PO BID Cyclosporine (Ophth) (Restasis) 0.05 % Emu 1 DROP OP BID, BTL Escitalopram (Lexapro) 10 Mg Tab 10 MG PO QAM Escitalopram Oxalate (Lexapro) 20 Mg Tab 20 MG PO QPM, TAB Metformin Hcl (Glucophage) 1,000 Mg Tab 1000 MG PO BID, TAB Metoprolol Succinate (Toprol Xl) 50 Mg Tabcr 50 MG PO HS Multiple Vitamins W/ Minerals (Multi Complete/Iron) 1 Tab Tab 1 TAB PO DAILY Omeprazole (Prilosec) 40 Mg Cap 40 MG PO DAILY, CAP Potassium (Potassium) 75 Mg Tab 3 TABS PO DAILY Simvastatin (Zocor) 20 Mg Tab 20 MG PO QPM, TAB Tamoxifen Citrate (Nolvadex) 20 Mg Tab 20 MG PO QAM, TAB Telmisartan (Micardis) 20 Mg Tab 20 MG PO DAILY Travoprost (Travatan Z) 0.004 % Ermias 1 DROPS OP HS Zinc Sulfate (Zinc Sulfate) 220 Mg Cap 220 MG PO DAILY, CAP Discharge Exam General Appearance: WD/WN, no apparent distress Head: normocephalic, atraumatic Eyes: normal inspection, PERRL ENT: normal ENT inspection Neck: supple Respiratory/Chest: chest non-tender, lungs clear, normal breath sounds, no respiratory distress, no accessory muscle use Cardiovascular: regular rate, rhythm, no edema, no gallop, no JVD, no murmur, normal peripheral pulses Abdomen/GI: normal bowel sounds, non tender, soft, no organomegaly, no pulsatile mass Extremities/Musculoskeletal: normal inspection, no calf tenderness, no pedal edema 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, no motor/sensory deficits, alert, normal mood/affect, normal reflexes, oriented x 3 Skin: normal color, warm/dry, no rash Review of Systems: Constitutional: No fever, No chills Respiratory: No cough, No shortness of breath Cardiovascular: No chest pain, No edema, No palpitations Abdomen: No pain, No nausea, No vomiting Genitourinary - Female: No dysuria, No urinary frequency, No urinary urgency Integumentary: No rash, No itch Physical Exam: General Appearance: WD/WN, no apparent distress Eyes: PERRL, EOMI Neck: supple, no adenopathy, trachea midline Respiratory/Chest: lungs clear, normal breath sounds, no respiratory distress Cardiovascular: regular rate, rhythm, no edema, no murmur Abdomen / GI: normal bowel sounds, non tender, soft, no organomegaly Extremities: no calf tenderness, no pedal edema Neurologic/Psychiatric: alert, normal mood/affect, oriented x 3 Hospital Course H&P Pt is a 72F with a PMHx of DM2, HTN, HLD, Breast CA that p/w sudden substernal squeezing chest pain that occurred suddenly when she was in [employer] . She was not lifting or doing anything strenous when it happened. The squeezing was constant and only when away in the ER when she got Nitro. She also felt a sharp stabbing pain in her back that occurred at the same time. The patient has had intermittent episodes such as these for the past 6 months or so, on average 1-2 per week. She felt that this episode was more painful than her previous episodes and that alarmed her. Her recommend she come to the ER. Pt rates her pain as 7/10. Pt has a 3 pack year smoking history in her 20s, doesn't chew, has never had pancreatitis in the past or problems with her gallbladder. ROS: +ve for SOB on exertion in the past few months. No hand or feet swelling. No calf pain. No coughing. PMHx: Pt remembers being Cath'd 30+ year ago (before they did caths in [place]) , had had echos, follows with Dr. Miguel, no echocardiograms or stress tests within the past 3 COURSE Patient on arrival had unremarkable EKG, negative troponin. SHe was admitted to telemetry for chest pain rule out. During admission, second troponin was negative. CXR was negative. Stress echo was ordered and found to be normal although Baseline echocardiogram notes normal left ventricular systolic function , mild LVH, and evidence of diastolic dysfunction. Based on negative workup, it was concluded that patient's chest pain was likely non-cardiac. She was discharged home with Primary care followup. Resident Physician Supervision Note: I interviewed and examined the patient. Discussed with Dr. Isidro and agree with findings and plan as documented in the note. Any exceptions or clarifications are listed here: None Documented By: Caden erazo no chest pain workup negative vitals noted nad breathing unlabored chest pain - noncardiac, stable for home Total Time Spent: Less than 30 minutes This includes examination of the patient, discharge planning, medication reconciliation, and communication with other providers. Discharge Instructions Please refer to the electronic Patient Visit Report (Discharge Instructions) for additional information. Additional Copies To Yahaira Rodriguez D.O.
== END 2017-09-09 12:31 | disposition home or self-care (01) ==
LOC: C.EDB 23:46 → C.MED 09-09 02:21 → ENRESERV 09-09 02:39
PROVIDERS: ADMIT Family Medicine; ATTEND Hospitalist
DX: R07.2 Precordial pain (principal); I10 Essential (primary) hypertension; E11.9 Type 2 diabetes mellitus without complications; K21.9 Gastro-esophageal reflux disease without esophagitis; F32.9 Major depressive disorder, single episode, unspecified; H40.9 Unspecified glaucoma; E78.5 Hyperlipidemia, unspecified; Z85.3 Personal history of malignant neoplasm of breast; Z82.49 Family history of ischemic heart disease and other diseases of the circulatory system; Z79.82 Long term (current) use of aspirin; Z79.84 Long term (current) use of oral hypoglycemic drugs; Z88.6 Allergy status to analgesic agent; Z91.041 Radiographic dye allergy status; Z91.040 Latex allergy status; Z91.048 Other nonmedicinal substance allergy status; Z88.5 Allergy status to narcotic agent; Z88.2 Allergy status to sulfonamides; Z88.8 Allergy status to other drugs, medicaments and biological substances